=== PATIENT | male | born 1970 | race Two or more races ===

== ENCOUNTER 2025-03-19 01:18 | Inpatient (IN) | payer OTHER ==
[~2025-03-19] VITALS: Ht 165.1 cm; Wt 59.1 kg
[2025-03-19] MEDS ORDERED: MORPHINE SULFATE INJ 4 MG/ML DISP.SYRIN ONE ×2 (01:44→05:10)
[2025-03-19] MEDS ORDERED: ONDANSETRON HCL/PF 4 MG/2 ML VIAL ONE (01:44)
[2025-03-19] MEDS: ONDANSETRON HCL/PF 4 MG/2 ML VIAL IVP ONE (02:12)
[2025-03-19] MEDS: IV NS 0.9% 1,000 ML BAG IV ONE (02:12)
[2025-03-19] MEDS: MORPHINE SULFATE INJ 2 MG/ML DISP.SYRIN IV ONE ×2 (02:12→05:10)
[2025-03-19 02:13] LABS: PLATELET COUNT (AUTO) 145 K/uL (150-450); RED BLOOD CELL COUNT(AUTO) 4.26 MIL/uL (4.5-6.0); RED CELL DISTRIBUTION WIDTH 16.6 % (11.5-15.0); WHITE BLOOD COUNT (AUTO) 19.8 K/uL (4.3-11.0)
[2025-03-19] MEDS ORDERED: PANTOPRAZOLE 40 MG VIAL ONE ×2 (02:13→10:00)
[2025-03-19] MEDS: PANTOPRAZOLE 80 MG in IV NS 0.9% 100 ML IV ONE (02:23)
[2025-03-19] MEDS: PANTOPRAZOLE 80 MG in IV NS 0.9% 500 ML IV PRN (02:56)
[2025-03-19 03:27] LABS: APPEARANCE,URINE TURBID (CLEAR); BLOOD, URINE 3+ Ery/uL (NEGATIVE); LEUKOCYTE ESTERASE ,URINE TRACE (NEGATIVE); NITRITE, URINE POSITIVE (NEGATIVE); UGLUCOSE TRACE mg/dL (NEGATIVE)
[2025-03-19] MEDS ORDERED: CEFTRIAXONE 1GM BAG (ER ONLY) 50 ML IV ONE (03:48)
[2025-03-19] MEDS: CEFTRIAXONE 1GM BAG (ER ONLY) 1 GM/50 ML PIGGYBACK IV ONE (03:52)
[2025-03-19 04:05] LABS: ADD URINE CULTURE YES; SQUAMOUS EPITHELIAL CELL,UR 0-2 /HPF (None Seen)
[2025-03-19] MEDS ORDERED: AZITHROMYCIN 500 MG VIAL ONE (04:27)
[2025-03-19] MEDS: AZITHROMYCIN 500 MG in IV D5W 250 ML IV ONE (04:35)
[2025-03-19 04:39] LABS: CALCIUM, SERUM 8.8 mg/dL (8.5-10.1); CREATININE 1.0 mg/dL (0.6-1.3); SODIUM SERUM 132.0 mmol/L (136-145); UREA NITROGEN, BLOOD 54.0 mg/dL (7-18)
[2025-03-19 04:44] LABS: INR 1.37 (0.91-1.10)
[2025-03-19 04:52] LABS: ASPARTATE AMINOTRANSFERASE 227.0 U/L (15-37); TOTAL PROTEIN, SERUM 4.0 g/dL (6.4-8.2)
[2025-03-19] MEDS ORDERED: INSULIN REGULAR, HUMAN 100 UNIT/ML 10 ML VIAL ONE (04:59)
[2025-03-19] MEDS ORDERED: FUROSEMIDE 40 MG/4 ML VIAL ONE (05:00)
[2025-03-19] MEDS ORDERED: DEXTROSE 50%-WATER 50 ML DISP.SYRIN ONE (05:00)
[2025-03-19] MEDS ORDERED: CALCIUM CHLORIDE 1,000 MG/10 ML DISP.SYRIN ONE (05:00)
[2025-03-19] MEDS ORDERED: SODIUM BICARBONATE SYR 50 MEQ/50 ML DISP.SYRIN ONE (05:00)
[2025-03-19] MEDS: ALBUTEROL FS 2.5 MG/3 ML VIAL.NEB NEB ONE (05:05)
[2025-03-19] MEDS: DEXTROSE 50%-WATER 50 ML DISP.SYRIN IV ONE (05:05)
[2025-03-19] MEDS: INSULIN REGULAR, HUMAN 100 UNIT/ML 10 ML VIAL IV ONE (05:06)
[2025-03-19 05:07] VITALS: O2SAT 100
[2025-03-19] MEDS ORDERED: FUROSEMIDE 20 MG/2 ML VIAL ONE (05:07)
[2025-03-19] MEDS ORDERED: ALBUTEROL FS 2.5 MG/3 ML VIAL.NEB ONE (05:10)
[2025-03-19 05:22] VITALS: O2SAT 100
[2025-03-19] MEDS: SODIUM BICARBONATE SYR 50 MEQ/50 ML DISP.SYRIN IV ONE (05:24)
[2025-03-19] MEDS: FUROSEMIDE 40 MG/4 ML VIAL IV ONE (05:24)
[2025-03-19] MEDS: CALCIUM CHLORIDE 1,000 MG/10 ML DISP.SYRIN IV ONE (05:24)
[2025-03-19] MEDS ORDERED: ACETAMINOPHEN 325 MG TABLET PO PRN (05:30)
[2025-03-19] MEDS ORDERED: MAGNESIUM HYDROXIDE 30 ML UDC PO PRN (05:30)
[2025-03-19] MEDS ORDERED: SODIUM ZIRCONIUM CYCLOSILICATE 10 GM POWD.PACK ONE (06:29)
[2025-03-19] MEDS: SODIUM ZIRCONIUM CYCLOSILICATE 5 GM POWD.PACK PO ONE (06:33)
[2025-03-19 06:40] LABS: LACTIC ACID 4.7 mmol/L (0.4-2.0)
[2025-03-19] MEDS: PANTOPRAZOLE 40 MG VIAL IV SCH (09:00)
[2025-03-19 09:02] LABS: PLATELET COUNT (AUTO) 112 K/uL (150-450); RED BLOOD CELL COUNT(AUTO) 3.70 MIL/uL (4.5-6.0); RED CELL DISTRIBUTION WIDTH 16.8 % (11.5-15.0); WHITE BLOOD COUNT (AUTO) 24.6 K/uL (4.3-11.0)
[2025-03-19 09:37] LABS: CALCIUM, SERUM 10.0 mg/dL (8.5-10.1); CREATININE 1.4 mg/dL (0.6-1.3); SODIUM SERUM 135.0 mmol/L (136-145); UREA NITROGEN, BLOOD 63.0 mg/dL (7-18)
[2025-03-19 16:00] VITALS: BP 123/97; TEMP 97.6; O2SAT 98
[2025-03-19 17:00] VITALS: BP 123/97; TEMP 97.6; O2SAT 98
[2025-03-19] MEDS: IV D5/ 0.9% NACL 1,000 ML IV PRN (17:05)
[2025-03-19] MEDS: Z GUARD REMEDY 4 OZ OINT TP PRN (17:18)
[2025-03-19 20:05] LABS: PLATELET COUNT (AUTO) 57 K/uL (150-450); RED BLOOD CELL COUNT(AUTO) 3.38 MIL/uL (4.5-6.0); RED CELL DISTRIBUTION WIDTH 17.6 % (11.5-15.0); WHITE BLOOD COUNT (AUTO) 24.6 K/uL (4.3-11.0)
[2025-03-19 20:27] LABS: MONOCYTES % (MANUAL) 1 % (0-11.0); NEUTROPHILS % (MANUAL) 99 (42-76)
[2025-03-19 20:28] LABS: PLATELET ESTIMATE DECREASED
[2025-03-19] MEDS: MORPHINE SULFATE INJ 4 MG/ML DISP.SYRIN IV PRN (21:16)
[2025-03-19 22:00] VITALS: BP 120/95; TEMP 97.8; O2SAT 98
[2025-03-20] VITALS: BP 115/85; TEMP 98.1; O2SAT 100
[2025-03-20 04:00] VITALS: BP 113/63; TEMP 97.6; O2SAT 100
[2025-03-20] MEDS: CEFTRIAXONE 1 G in IV D5W 50 ML IV SCH (04:36)
[2025-03-20] MEDS: AZITHROMYCIN 500 MG in IV D5W 250 ML IV SCH (05:09)
[2025-03-20 07:49] LABS: RED BLOOD CELL COUNT(AUTO) 3.34 MIL/uL (4.5-6.0); RED CELL DISTRIBUTION WIDTH 17.1 % (11.5-15.0); WHITE BLOOD COUNT (AUTO) 26.0 K/uL (4.3-11.0)
[2025-03-20 07:59] LABS: PLATELET COUNT (AUTO) 44 K/uL (150-450)
[2025-03-20 08:00] VITALS: BP 119/93; TEMP 97.8; O2SAT 97
[2025-03-20 08:02] LABS: CALCIUM, SERUM 9.4 mg/dL (8.5-10.1); CREATININE 1.8 mg/dL (0.6-1.3); PHOSPHORUS 4.1 mg/dL (2.5-4.9); SODIUM SERUM 135.0 mmol/L (136-145); UREA NITROGEN, BLOOD 79.0 mg/dL (7-18)
[2025-03-20 12:00] VITALS: BP 127/94; TEMP 97.9; O2SAT 98
[2025-03-20 12:32] LABS: LYMPHOCYTES % (MANUAL) 2 % (16-48); MONOCYTES % (MANUAL) 2 % (0-11.0); NEUTROPHILS % (MANUAL) 96 (42-76); PLATELET ESTIMATE DECREASED
[2025-03-20 16:00] VITALS: BP 131/98; TEMP 97.9; O2SAT 98
[2025-03-20 20:00] VITALS: BP 115/68; TEMP 97.8; O2SAT 99
[2025-03-21] VITALS: BP 125/93; TEMP 97.6; O2SAT 98
[2025-03-21] MEDS: ONDANSETRON HCL/PF 4 MG/2 ML VIAL IVP PRN (02:31)
[2025-03-21 04:00] VITALS: BP 121/90; TEMP 97.5; O2SAT 97
[2025-03-21 08:00] VITALS: BP 135/99; TEMP 97.8; O2SAT 97
[2025-03-21 12:00] VITALS: BP 126/93; TEMP 97.3; O2SAT 97
[2025-03-21 16:00] VITALS: BP 119/91; TEMP 97.5; O2SAT 97
[2025-03-21 20:00] VITALS: BP 132/90; TEMP 97; O2SAT 98
[2025-03-22] VITALS: BP 124/84; TEMP 97.9; O2SAT 100
[2025-03-22 04:00] VITALS: BP 133/98; TEMP 97.3; O2SAT 96
[2025-03-22 08:00] VITALS: BP 111/87; TEMP 97.5; O2SAT 98
[2025-03-22] MEDS: SODIUM POLYSTYRENE SULFONATE 15 G/60 ML BOTTLE PO ONE (09:30)
[2025-03-22 12:00] VITALS: BP 121/87; TEMP 97.7; O2SAT 98
[2025-03-22] MEDS: LACTULOSE 10 G/15 ML UDC (PYXIS) PO SCH (12:08)
[2025-03-22 16:00] VITALS: BP 112/82; TEMP 97.3; O2SAT 98
[2025-03-22 20:00] VITALS: BP 115/83; TEMP 98.1; O2SAT 97
[2025-03-23] VITALS: BP 109/79; TEMP 97.9; O2SAT 91
[2025-03-23 04:00] VITALS: BP 114/82; TEMP 97.5; O2SAT 95
[2025-03-23 07:30] VITALS: BP 105/80; TEMP 97.7; O2SAT 96
[2025-03-23 08:00] VITALS: BP 105/80; TEMP 97.7; O2SAT 98
[2025-03-23] MEDS ORDERED: LACT10SO58 PO (11:40)
[2025-03-23 12:00] VITALS: BP_SYST 124; BP_SYST 90; BP_DIAS 75; BP_DIAS 93; TEMP 97.8; O2SAT 100
[2025-03-23 16:00] VITALS: BP_SYST 87; BP_SYST 88; BP_DIAS 76; BP_DIAS 78; TEMP 97.7; TEMP 97.8; O2SAT 100; O2SAT 99
== END 2025-03-23 20:25 | disposition hospice, inpatient (51) | DRG 253 ==
LOC: ER 01:22 → TELE IN 06:12 → TELE-TD 15:35 → TELE1 03-20 00:11 → MEDSG1 03-23 12:59
PROVIDERS: ADMIT Internal Medicine; ATTEND Internal Medicine
DX: K92.2 Gastrointestinal hemorrhage, unspecified (principal); N17.0 Acute kidney failure with tubular necrosis; G93.41 Metabolic encephalopathy; J15.69 Pneumonia due to other Gram-negative bacteria; J15.9 Unspecified bacterial pneumonia; E72.20 Disorder of urea cycle metabolism, unspecified; D69.6 Thrombocytopenia, unspecified; E87.20 Acidosis, unspecified; E87.1 Hypo-osmolality and hyponatremia; R18.8 Other ascites; K76.82 Hepatic encephalopathy; Z66 Do not resuscitate; Z51.5 Encounter for palliative care; N39.0 Urinary tract infection, site not specified; Z85.05 Personal history of malignant neoplasm of liver; Z92.21 Personal history of antineoplastic chemotherapy; E87.5 Hyperkalemia; G89.29 Other chronic pain; E86.0 Dehydration; R74.01 Elevation of levels of liver transaminase levels
CPT/HCPCS: 36415; 71045-TC; 76770-TC; 80048-TC; 80076-TC; 81001; 82140-TC; 82962-TC; 83605-TC; 83690-TC; 83735-TC; 84100-TC; 85025-TC; 85027-TC; 85730-TC; 86850-TC; 87040-TC; 87081-TC; 87086-TC; A4223; G0378; J0456; J0696; J1815; J1938; J2270; J2405; J2470; J3490; J7030; J7042; J7060